=== PATIENT | female | born 1995 | race African-American/Black ===

== ENCOUNTER 2017-10-25 15:26 | Emergency (ER) | payer BC ==
[~2017-10-25] VITALS: Ht 152.4 cm; Wt 80.0 kg
[2017-10-25 15:31] VITALS: BP 120/59; PULSE 114; RESP 14; TEMP 97.8; O2SAT 100
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
== END 2017-10-25 18:55 | disposition home or self-care (01) ==
LOC: NEPD 15:26
DX: R55 Syncope and collapse (principal); R51 Headache; R42 Dizziness and giddiness; V89.2XXA Person injured in unspecified motor-vehicle accident, traffic, initial encounter
CPT/HCPCS: 99282